=== PATIENT | female | born 1950 | race Caucasian/White ===

== ENCOUNTER 2018-04-23 05:55 | Day surgery (SDC) | payer MEDICARE, OTHER ==
[~2018-04-23] VITALS: Ht 157.5 cm; Wt 82.3 kg
[~2018-04-23 05:55] MED LIST: FLUT16H NASAL; INSNOV SQ; METF-960 PO; MONT10TA21 PO; RANI150T7 PO; SIMV-259 PO; VITAD400 PO
[2018-04-23] MEDS ORDERED: LIDOCAINE 2% 5 ML JELLY TP ONE (05:56)
[2018-04-23] MEDS ORDERED: LIDOCAINE 4% 50 ML SOLUTION TP ONE (05:56)
[2018-04-23] MEDS ORDERED: BENZOCAINE 20% 50 MCG/SPRAY 57 GM TP ONE (05:56)
[2018-04-23] MEDS ORDERED: SODIUM CHLORIDE 0.9% 1,000 ML IV ONE ×2 (06:25→06:30)
[2018-04-23 07:24] LABS: GLUCOMETER DEV NAME(LOC) SDS.; GLUCOSE,POINT OF CARE 226 MG/DL (70-110)
[2018-04-23] MEDS ORDERED: FentaNYL CITRATE-PF 100 MCG/2 ML VIAL ONE (08:34)
[2018-04-23] MEDS ORDERED: MIDAZOLAM HCL 2 MG/2 ML VIAL ONE (08:34)
[2018-04-23] MEDS ORDERED: MethylPREDNISolone SOD SUCC 125 MG/2 ML VIAL ONE (08:56)
[2018-04-23] MEDS ORDERED: MethylPREDNISolone SOD SUCC 125 MG/2 ML VIAL IVP ONE (09:00)
[2018-04-23] MEDS ORDERED: OXYGEN THERAPY IH SCH (20:00)
== END 2018-04-23 10:00 | disposition home or self-care (01) ==
LOC: SURGERY 05:55
PROVIDERS: ATTEND Internal Medicine Critical Care Medicine
DX: J38.4 Edema of larynx (principal); B37.0 Candidal stomatitis; J98.09 Other diseases of bronchus, not elsewhere classified; J98.8 Other specified respiratory disorders; E78.00 Pure hypercholesterolemia, unspecified; E11.9 Type 2 diabetes mellitus without complications; Z79.4 Long term (current) use of insulin; Z79.84 Long term (current) use of oral hypoglycemic drugs; Z87.891 Personal history of nicotine dependence; Z98.890 Other specified postprocedural states; Z79.899 Other long term (current) drug therapy
CPT/HCPCS: 31623; 31624; 71045; 82962; 87015; 87070; 87205; 87206; 87220; 87252 ×2; 88108; 88312; J2250; J2930; J3010; J7030

== ENCOUNTER 2020-06-12 06:00 | Day surgery (SDC) | payer MEDICARE, OTHER ==
[2020-06-09 16:37] LABS: COVID AG,FIA SOURCE NASOPHARYNGEAL
[~2020-06-12] VITALS: Ht 154.9 cm; Wt 80.5 kg
[~2020-06-12 06:00] MED LIST changes: +CHOL400T56 PO; +MONT-35 PO; -MONT10TA21 PO; -VITAD400 PO
[2020-06-12] MEDS ORDERED: LIDOCAINE 2% 30 ML JELLY TP ONE (06:01)
[2020-06-12] MEDS ORDERED: LIDOCAINE 4% 50 ML SOLUTION TP ONE (06:01)
[2020-06-12] MEDS ORDERED: BENZOCAINE 20% 50 MCG/SPRAY 57 GM TP ONE (06:01)
[2020-06-12] MEDS ORDERED: ALBUTEROL SULFATE 2.5 MG/0.5 ML NEB SOLUTION NEB ONE (06:01)
[2020-06-12] MEDS ORDERED: SODIUM CHLORIDE 0.9% 1,000 ML ONE (06:28)
[2020-06-12] MEDS ORDERED: SODIUM CHLORIDE 0.9% 1,000 ML IV ONE (07:00)
[2020-06-12 07:24] LABS: GLUCOMETER DEV NAME(LOC) SDS.; GLUCOSE,POINT OF CARE 160 MG/DL (70-110)
[2020-06-12] MEDS ORDERED: MIDAZOLAM HCL 2 MG/2 ML VIAL ONE (07:27)
[2020-06-12] MEDS ORDERED: FentaNYL CITRATE PF 100 MCG/2 ML VIAL ONE (07:28)
[2020-06-12] MEDS ORDERED: MethylPREDNISolone SOD SUCC 125 MG/2 ML VIAL ONE (08:56)
[2020-06-12] MEDS ORDERED: MethylPREDNISolone SOD SUCC 125 MG/2 ML VIAL IVP ONE (09:00)
[2020-06-12] MEDS ORDERED: OXYGEN THERAPY IH SCH (20:00)
== END 2020-06-12 10:15 | disposition home or self-care (01) ==
LOC: SURGERY 06:00
PROVIDERS: ATTEND Internal Medicine Critical Care Medicine
DX: J38.4 Edema of larynx (principal); J45.909 Unspecified asthma, uncomplicated; B37.0 Candidal stomatitis; E11.9 Type 2 diabetes mellitus without complications
CPT/HCPCS: 31623; 31624; 71045; 82962; 87015; 87070; 87101; 87205; 87206; 87220; 87426; 88108; 88184; 88185; 88312; C9803; J2250; J2930; J3010; J7030; J7613; Z7610

== ENCOUNTER 2022-07-04 06:40 | Day surgery (SDC) | payer MEDICARE, OTHER ==
[~2022-07-04 06:40] MED LIST changes: -FLUT16H NASAL; +FLUT16SP NASAL; +METF-1211 PO; -METF-960 PO
[2022-07-04] MEDS ORDERED: LIDOCAINE 4% 50 ML SOLUTION TP ONE (06:41)
[2022-07-04] MEDS ORDERED: BENZOCAINE 20% 50 MCG/SPRAY 57 GM TP ONE (06:41)
[2022-07-04] MEDS ORDERED: LIDOCAINE 2% 11 ML JELLY TP ONE (06:41)
[2022-07-04] MEDS ORDERED: SODIUM CHLORIDE 0.9% 1,000 ML IV ONE (07:00)
[2022-07-04] MEDS ORDERED: SODIUM CHLORIDE 0.9% 1,000 ML ONE (07:11)
[2022-07-04 08:01] LABS: GLUCOMETER DEV NAME(LOC) SDS.; GLUCOSE,POINT OF CARE 135 MG/DL (70-110)
[2022-07-04] MEDS ORDERED: FentaNYL CITRATE PF 100 MCG/2 ML VIAL ONE (08:12)
[2022-07-04] MEDS ORDERED: MIDAZOLAM HCL 2 MG/2 ML VIAL ONE (08:12)
[2022-07-04] MEDS ORDERED: MethylPREDNISolone SOD SUCC 125 MG/2 ML VIAL IVP ONE (10:00)
[2022-07-04] MEDS ORDERED: MethylPREDNISolone SOD SUCC 125 MG/2 ML VIAL ONE (10:05)
== END 2022-07-04 11:20 | disposition home or self-care (01) ==
LOC: SURGERY 06:40
PROVIDERS: ATTEND Internal Medicine Critical Care Medicine
DX: R05.8 Other specified cough (principal)
CPT/HCPCS: 88305; 88112; 82962; 87206; 87101; 87220; 87070; 31623; 31624; 71045; 87015; J3010; J2250; J2930; Q9967; J7030; Z7610

== ENCOUNTER 2023-05-08 07:18 | Day surgery (SDC) | payer MEDICARE, OTHER ==
[~2023-05-08] VITALS: Ht 154.9 cm; Wt 77.3 kg
[2023-05-08] MEDS ORDERED: BENZOCAINE 20% 50 MCG/SPRAY 57 GM TP ONE (07:19)
[2023-05-08] MEDS ORDERED: LIDOCAINE 4% 50 ML SOLUTION TP ONE (07:19)
[2023-05-08] MEDS ORDERED: LIDOCAINE 2% 11 ML JELLY TP ONE (07:19)
[2023-05-08] MEDS ORDERED: ALBUTEROL SULFATE 2.5 MG/0.5 ML NEB SOLUTION NEB ONE (07:19)
[2023-05-08] MEDS ORDERED: SEMA1PEN3 SQ (08:12)
[2023-05-08] MEDS: SODIUM CHLORIDE 0.9% 1,000 ML IV ONE (08:14)
[2023-05-08 08:16] LABS: GLUCOMETER DEV NAME(LOC) SDS.; GLUCOSE,POINT OF CARE 111 MG/DL (70-110)
[2023-05-08] MEDS ORDERED: FentaNYL CITRATE PF 100 MCG/2 ML VIAL ONE (08:29)
[2023-05-08] MEDS ORDERED: MIDAZOLAM HCL 2 MG/2 ML VIAL ONE (08:29)
[2023-05-08] MEDS ORDERED: MethylPREDNISolone SOD SUCC 125 MG/2 ML VIAL ONE (09:29)
[2023-05-08 09:30] VITALS: PULSE 76; RESP 18; O2SAT 94
[2023-05-08] MEDS: MethylPREDNISolone SOD SUCC 125 MG/2 ML VIAL IVP ONE (10:00)
[2023-05-08] MEDS ORDERED: SODIUM CHLORIDE 0.9% 1,000 ML ONE (11:47)
== END 2023-05-08 11:30 | disposition home or self-care (01) ==
LOC: SURGERY 07:18
PROVIDERS: ATTEND Internal Medicine Critical Care Medicine
DX: J38.4 Edema of larynx (principal); B37.0 Candidal stomatitis; E11.9 Type 2 diabetes mellitus without complications; J45.909 Unspecified asthma, uncomplicated; Z79.899 Other long term (current) drug therapy
CPT/HCPCS: 31623; 82962; 87206; 87101; 87220; 87070; 31624; 71045; 87015; J3010; J2250; J2930; Q9967; J7030; 88112; 88305; J7613; Z7610

== ENCOUNTER 2023-12-01 06:08 | Day surgery (SDC) | payer MEDICARE, OTHER ==
[~2023-12-01] VITALS: Ht 154.9 cm; Wt 77.2 kg
[~2023-12-01 06:08] MED LIST changes: +SEMA1PEN3 SQ
[2023-12-01] MEDS ORDERED: SODIUM CHLORIDE 0.9% 1,000 ML ONE (06:41)
[2023-12-01] MEDS: SODIUM CHLORIDE 0.9% 1,000 ML IV ONE (07:28)
[2023-12-01 07:41] LABS: GLUCOMETER DEV NAME(LOC) SDS.; GLUCOSE,POINT OF CARE 106 MG/DL (70-110)
[2023-12-01] MEDS ORDERED: FentaNYL CITRATE PF 100 MCG/2 ML VIAL ONE (07:53)
[2023-12-01] MEDS ORDERED: MIDAZOLAM HCL 2 MG/2 ML VIAL ONE (07:54)
[2023-12-01 09:30] VITALS: PULSE 72; RESP 17; O2SAT 97
[2023-12-01] MEDS ORDERED: MethylPREDNISolone SOD SUCC 125 MG/2 ML VIAL ONE (10:05)
[2023-12-01] MEDS: MethylPREDNISolone SOD SUCC 125 MG/2 ML VIAL IVP ONE (10:06)
[2023-12-01] MEDS ORDERED: LIDOCAINE 2% 11 ML JELLY TP ONE (12:00)
[2023-12-01] MEDS ORDERED: LIDOCAINE 4% 50 ML SOLUTION TP ONE (12:00)
[2023-12-01] MEDS ORDERED: BENZOCAINE 20% 50 MCG/SPRAY 57 GM TP ONE (12:00)
[2023-12-01] MEDS ORDERED: ALBUTEROL SULFATE 2.5 MG/0.5 ML NEB SOLUTION NEB ONE (12:00)
== END 2023-12-01 12:50 | disposition home or self-care (01) ==
LOC: SURGERY 06:08
PROVIDERS: ATTEND Internal Medicine Critical Care Medicine
DX: R05.3 Chronic cough (principal); J38.4 Edema of larynx; B37.0 Candidal stomatitis; R04.2 Hemoptysis; J98.09 Other diseases of bronchus, not elsewhere classified; J84.10 Pulmonary fibrosis, unspecified; J98.8 Other specified respiratory disorders; I51.7 Cardiomegaly; J45.909 Unspecified asthma, uncomplicated; Z87.891 Personal history of nicotine dependence; E11.9 Type 2 diabetes mellitus without complications; Z79.4 Long term (current) use of insulin; Z79.899 Other long term (current) drug therapy
CPT/HCPCS: 31623; 82962; 87206; 87101; 87220; 87070; 88108; 31624; 94640; 71045; 87015; J3010; J2250; J2919; J7030; J7613; Z7610

== ENCOUNTER 2024-11-11 06:05 | Day surgery (SDC) | payer MEDICARE, OTHER ==
[~2024-11-11] VITALS: Ht 154.9 cm; Wt 77.3 kg
[~2024-11-11 06:05] MED LIST changes: +SODIUM CHLORIDE 0.9% 1,000 ML ONE
[2024-11-11] MEDS: SODIUM CHLORIDE 0.9% 1,000 ML IV ONE (07:43)
[2024-11-11] MEDS ORDERED: CHOL200074 PO (08:08)
[2024-11-11] MEDS ORDERED: FentaNYL CITRATE PF 100 MCG/2 ML VIAL ONE (08:11)
[2024-11-11] MEDS ORDERED: MIDAZOLAM HCL 2 MG/2 ML VIAL ONE (08:11)
[2024-11-11] MEDS ORDERED: ATOR10TA69 PO (08:12)
[2024-11-11] MEDS ORDERED: ASPI-1444 PO (08:12)
[2024-11-11] MEDS ORDERED: EMPA10TA3 PO (08:12)
[2024-11-11] MEDS ORDERED: INSU200I4 SQ (08:12)
[2024-11-11] MEDS ORDERED: LEVO5TAB13 PO (08:12)
[2024-11-11] MEDS ORDERED: TIRZ7.5P SQ (08:12)
[2024-11-11] MEDS ORDERED: METF-446 PO (08:12)
[2024-11-11 09:21] VITALS: PULSE 75; RESP 18; O2SAT 98
[2024-11-11 11:55] LABS: GLUCOMETER DEV NAME(LOC) SDS.; GLUCOSE,POINT OF CARE 197 MG/DL (70-110)
[2024-11-11] MEDS ORDERED: ALBUTEROL SULFATE 2.5 MG/0.5 ML NEB SOLUTION NEB ONE (12:00)
[2024-11-11] MEDS ORDERED: LIDOCAINE 4% 50 ML SOLUTION ONE (12:00)
[2024-11-11] MEDS ORDERED: LIDOCAINE 2% 11 ML JELLY ONE (12:00)
[2024-11-11] MEDS ORDERED: BENZOCAINE 20% 50 MCG/SPRAY 57 GM ONE (12:00)
== END 2024-11-11 13:30 | disposition home or self-care (01) ==
LOC: SDS 06:05
PROVIDERS: ATTEND Internal Medicine Critical Care Medicine
DX: R05.3 Chronic cough (principal); R06.1 Stridor; R91.8 Other nonspecific abnormal finding of lung field; E11.9 Type 2 diabetes mellitus without complications; J45.909 Unspecified asthma, uncomplicated; Z79.4 Long term (current) use of insulin; Z79.84 Long term (current) use of oral hypoglycemic drugs; Z90.49 Acquired absence of other specified parts of digestive tract; Z98.891 History of uterine scar from previous surgery
CPT/HCPCS: 31623; 82962; 87206; 87101; 87220; 87070; 88108; 31624; 71045; 87015; J3010; J2250; J2919; J7030; J7613; Z7610